=== PATIENT | female | born 1985 | race American Indian/Alaskan Native ===

== ENCOUNTER 2020-10-21 19:46 | Inpatient (IN) | payer BC, MEDICAID ==
[2020-10-21] MEDS ORDERED: OXYTOCIN DRIP 30,000 MILLIUNITS/500 ML BAG IV ONE (20:08)
--- NOTE | 2020-10-21 20:47 | History and Physical Report ---
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 History: chlamydia Family/Genetic History: none Social history: smoking - Obstetrical History Expected Date of Delivery: 10/22/20 Actual Gestation: 39 Week(s) 6 Day(s) : 7 Para: 3 Hx # Term Pregnancies: 3 Number of Pregnancies: 0 Spontaneous Abortions: 1 Induced : 2 Number of Living Children: 3 Medications and Allergies Allergies Allergy/AdvReac Type Severity Reaction Status Date / Time No Known Allergies Allergy Unverified 04/11/18 13:21 Home Medications Medication Instructions Recorded Confirmed Last Taken Type Amoxicillin 500 mg PO BID #20 capsule 04/11/18 Unknown Rx Review of Systems All systems: negative Genitourinary: contractions - Vital Signs Vital signs: Vital Signs Pulse BP 88 117/58 10/21/20 20:19 10/21/20 20:19 Temp Pulse Resp BP Pulse Ox 98.2 F 79 18 113/57 10/21/20 20:22 10/21/20 20:34 10/21/20 20:22 10/21/20 20:34 - Physical Exam Breasts: Positive: deferred Cardiovascular: Regular rate Lungs: Positive: Normal air movement Abdomen: Positive: normal appearance, soft Genitourinary (Female): Positive: normal external genitalia, normal perenium Vulva: both: normal Vagina: Positive: other (grossly ruptured clear fluid) Uterus: Positive: normal size, normal contour Anus/Rectum: Positive: normal perianal skin Extremities: Positive: normal - Obstetrical Cervical Dilatation: 10 Cervical Effacement Percentage: 100 station: +2 Uterine Contraction Frequency (min): 2-6 per pt Uterine Contraction Pattern: Regular Uterine Tone Measurement Phase: Contraction Results Result Diagrams: 10/21/20 20:00 All other labs normal. see chart On 05/20/20 H/H 8.6/27.4 On 07/09/20 H/H 7.8/25.1 B POSITIVE HBsAg NEGATIVE HCV NEGATIVE AFP screen NEGATIVE RUBELLA IMMUNE GBS NEGATIVE GC/CT/Trich NEGATIVE HIV & RPR NONREACTIVE Assessment and Plan @39.6weeks presents to triage with c/o contractions q2-6mins starting at 5pm tonight. CNM to bedside. Pt reports rectal pressure and as she was putting on her gown SROM clear fluid. SVE C/C/+2. Pt verbally denies pertinent obstetrical, medical, and surgical history. Admit to labor. Anticipate - Patient Problems (1) Active labor at term Current Visit: Yes Status: Acute (2) 39 weeks gestation of Current Visit: Yes Status: Acute (3) Anemia Current Visit: Yes Status: Acute (4) Smoker Current Visit: Yes Status: Acute
--- NOTE | 2020-10-21 20:56 | Procedure Note ---
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 [place] bulb suctioned with spontaneous vigorous cry. Cord blood drawn and 3 vessel umbilical cord cut by FOB after cessation of pulsation. Placenta delivered spontaneously, EBL 100mL. Counts correct x2. Apgars 8,9 and Wt. 8lbs 3oz. Mother and baby left LDR stable. - Infant A at 1 minute: 8 at 5 minutes: 9 Gender: Male ("Renzo" 8lbs 3oz)
[2020-10-21] MEDS ORDERED: ePHEDrine SULFATE 50 MG/1 ML INJ IV PRN (20:59)
[2020-10-21] MEDS ORDERED: LIDOCAINE (2%) 20 MG/1 ML VIAL 20 ML MDV INFILTRATI ONE (20:59)
[2020-10-21] MEDS ORDERED: METHYLERGONOVINE MALEATE 0.2 MG/ML VIAL IM PRN (20:59)
[2020-10-21] MEDS ORDERED: miSOPROStol 200 MCG TAB PR PRN (20:59)
[2020-10-21] MEDS ORDERED: CARBOPROST TROMETHAMINE 250 MCG/1 ML INJ IM PRN (20:59)
[2020-10-21] MEDS ORDERED: TERBUTALINE 1 MG/1 ML INJ SUB-Q PRN (20:59)
[2020-10-21] MEDS ORDERED: OXYTOCIN 10 UNIT/1 ML INJ IM PRN (20:59)
[2020-10-21] MEDS ORDERED: LOPERAMIDE 2 MG CAP PO PRN (20:59)
[2020-10-21] MEDS ORDERED: OXYTOCIN DRIP 30 UNITS/500 ML BAG IV SCH (21:00)
[2020-10-21] MEDS ORDERED: LACTATED RINGERS 1,000 ML IV SCH (21:00)
[2020-10-21 21:16] LABS: Hematocrit 34.1 % (30.3-42.9); Mean Corpuscular HGB Conc 32 % (30-34); Mean Corpuscular Volume 82 fl (79-97); Platelet Count 254 K/mm3 (140-440); Red Blood Count 4.15 M/mm3 (3.65-5.03); Red Cell Distribution Width 23.8 % (13.2-15.2)
[2020-10-21] MEDS ORDERED: PROMETHAZINE 25 MG TAB PO PRN (23:40)
[2020-10-21] MEDS ORDERED: ACETAMINOPHEN 325 MG TAB PO PRN (23:40)
[2020-10-21] MEDS ORDERED: MAGNESIUM HYDROXIDE (MOM) ORAL LIQD UDC PO PRN (23:40)
[2020-10-21] MEDS ORDERED: BENZOCAINE/MENTHOL 20/0.5% TOP SPRAY 56 GM TP PRN (23:40)
[2020-10-21] MEDS ORDERED: diphenhydrAMINE 25 MG CAP PO PRN (23:40)
[2020-10-21] MEDS ORDERED: LANOLIN/ZINC/DIMETHICONE (LANSINOH) 7 GM TP PRN (23:40)
[2020-10-21] MEDS ORDERED: ONDANSETRON 4 MG/2 ML INJ IV PRN (23:40)
[2020-10-21] MEDS ORDERED: WITCH HAZEL/ GLYCERIN PAD TP PRN (23:40)
[2020-10-22] MEDS: IBUPROFEN 800 MG TAB PO PRN ×2 (04:44→18:02)
[2020-10-22] MEDS ORDERED: medroxyPROGESTERone ACETATE 150 MG/ML SYRINGE IM NR (08:47)
--- NOTE | 2020-10-22 08:47 | Discharge Summary ---
Providers - Providers Date of Admission: 10/21/20 20:23 Date of discharge: 10/22/20 (Pt has a very strong desire to go home.) Attending physician: CHELSEA CHAND Primary care physician: CHELSEA CHAND Hospitalization Reason for admission: active labor Delivery: Episiotomy: none Laceration: none Other procedures: none complications: none Discharge diagnosis: IUP at term delivered baby: male Hospital course: S: Pt doing well. Has a very strong desire to go home tonight. Voiding, ambulating, and passing flatus okay. BC: Nexplanon. Would like Depo before discharge home. O: VSS. H/H 10.2/32.0. Fundus firm, minimal bleeding noted. A: 35 y.o. s/p @ term. In good condition and can be discharge home. P: Discharge home with instructions. To scheduled son's circumcision in the office in 1 week. To schedule visit in the office in 4 weeks. Condition at discharge: Good Disposition: DC-01 TO HOME OR SELFCARE Plan - Discharge Medications Prescriptions: Lidocain2.5%/Prilocai2.5% [Emla] 1 applic TP ONCE #1 tube Ibuprofen [Motrin] 800 mg PO Q8HR PRN #30 tablet PRN Reason: Pain, Moderate (4-6) - Provider Discharge Summary Activity: routine, no sex for 6 weeks, no heavy lifting 4 weeks, no strenuous exercise Diet: routine Instructions: routine Additional instructions: [] Smoking cessation referral if applicable(refer to patient education folder for contact #) [] Refer to [facility]'s [facility] Booklet Call your doctor immediately for: * Fever > 100.5 * Heavy vaginal bleeding ( >1 pad per hour) * Severe persistent headache * Shortness of breath * Reddened, hot, painful area to leg or breast * Drainage or odor from incision. * Keep incision clean and dry at all times and follow doctor's instructions regarding bathing/showering Congratulations on your baby boy!! Thank you for allowing us to take care of you and your son. Please schedule your son's circumcision in our office in 1 week. You have been prescribed EMLA cream for your son's circumcision. Please do not use this cream at home, but bring it with you to your son's circumcision appo intment. Please schedule a visit in the office in 4 weeks. Should you have any questions or concerns after discharge, please do not hesitate to call our office at [phone]. - Follow up plan Follow up: CHELSEA CHAND MD [Primary Care Provider] - 7 Days
[2020-10-22 09:20] LABS: Hemoglobin 10.2 gm/dl (10.1-14.3)
[2020-10-22] MEDS: FERROUS SULFATE 325 MG TAB PO SCH (11:34)
[2020-10-22] MEDS: DOCUSATE SODIUM 100 MG CAP PO SCH (11:34)
[2020-10-22] MEDS: PRENATAL VIT27-FE FUMARATE-FOLIC ACID VIT TAB PO SCH (11:34)
[2020-10-23] MEDS: DOCUSATE SODIUM 100 MG CAP PO SCH ×2 (00:18→09:46)
[2020-10-23] MEDS: IBUPROFEN 800 MG TAB PO PRN ×2 (03:08→11:58)
[2020-10-23] MEDS: FERROUS SULFATE 325 MG TAB PO SCH (09:45)
[2020-10-23] MEDS: PRENATAL VIT27-FE FUMARATE-FOLIC ACID VIT TAB PO SCH (09:46)
[2020-10-23 15:32] VITALS: BP 122/75
== END 2020-10-23 15:41 | disposition home or self-care (01) | DRG 807 ==
LOC: TRG 19:46 → LD 20:10 → TRG 20:22 → LD 20:23 → OB 21:53
PROVIDERS: ADMIT Obstetrics & Gynecology; ATTEND Obstetrics & Gynecology
PROC: 10E0XZZ Delivery of Products of Conception, External Approach (ICD-10-PCS; principal; 2020-10-21)
DX: O99.02 Anemia complicating childbirth (principal); Z37.0 Single live birth; D64.9 Anemia, unspecified; O99.334 Smoking (tobacco) complicating childbirth; F17.200 Nicotine dependence, unspecified, uncomplicated; Z20.822 Contact with and (suspected) exposure to COVID-19; O62.3 Precipitate labor; Z3A.39 39 weeks gestation of pregnancy
CPT/HCPCS: 36415; 85014; 85018; 85027; 86592; 86850; 86900; 86901; 99211; G0378; G0463; J1050; J2590; U0003